=== PATIENT | male | born 1970 | race Caucasian/White ===

== ENCOUNTER → 2016-08-27 | Outpatient (CLI) | payer OTHER | LOC: CIMAGING 10:15 | PROVIDERS: ATTEND Family Medicine | DX: R22.9 Localized swelling, mass and lump, unspecified (principal) | CPT/HCPCS: 76705-PO ==

== ENCOUNTER → 2016-12-05 | Day surgery (SDC) | payer OTHER ==
[~2016-12-05] MED LIST: BUPIVACAINE 0.25% 30 ML SDV ONE; BUPIVACAINE 0.5% 10 ML SDV ONE; DEPO METHYLPREDNISOLONE 40 MG/ML SDV ONE
== END | disposition home or self-care (01) ==
LOC: FIMAGING 08:03
PROVIDERS: ATTEND Radiology Diagnostic Radiology
PROC: BW2G1ZZ Computerized Tomography (CT Scan) of Pelvic Region using Low Osmolar Contrast (ICD-10-PCS; principal; 2016-12-05)
PROC: 3E0V33Z Introduction of Anti-inflammatory into Bones, Percutaneous Approach (ICD-10-PCS; principal; 2016-12-05)
PROC: 0M9 Bursae and Ligaments, Drainage (ICD-10-PCS; principal; 2016-12-05)
DX: M67.451 Ganglion, right hip (principal)
CPT/HCPCS: J1030